=== PATIENT | female | born 1995 | race Caucasian/White ===

== ENCOUNTER 2018-10-08 02:44 | Emergency (ER) | payer OTHER ==
[~2018-10-08] VITALS: Ht 162.6 cm; Wt 80.7 kg
[2018-10-08 02:49] VITALS: Ht 162.6 cm; Wt 80.7 kg
[2018-10-08 03:36] VITALS: BP 114/64
== END 2018-10-08 03:45 | disposition home or self-care (01) ==
LOC: ED 02:44
DX: M54.5 Low back pain (principal); R11.0 Nausea